=== PATIENT | male | born 1950 ===

== ENCOUNTER 2025-02-26 12:48 | Outpatient (AMB) | payer MEDICARE, SELFPAY ==
--- NOTE | 2025-02-26 12:59 | A.OFFVIS_ITS ---
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 His reported that he was different, sleeping all the time, not active, not socializing, and forgetful. He said that he was not depressed or stressed, not drinking alcohol, and did not have headaches. No h/o seizure like episodes or stroke like symptoms.) He is presenting for a follow-up visit for memory issues. He has had no significant changes in his condition since his last visit. His memory is reported to be stable. The patient takes donepezil for his cognitive condition. He also takes gabapentin twice daily for peripheral neuropathy, which was prescribed by his primary care provider. He has a history of herpes zoster. The patient has a history of foot ulcers, which limited his mobility, but they are now improving. He is dependent on his for care and would have difficulty if he were living alone. He also has hearing impairment and reports muscle aches. Review of Systems Narrative - Neurological: Reports stable memory and myalgia. - Psychiatric: Reports stable mood and anxiety. - Constitutional: Reports stable sleep. - HEENT: Reports hearing impairment. - Integumentary: Reports improving ulcers on the feet. Physical Exam Neuro Other: Mental Status: Alert and oriented to person, place, and time. Normal attention. Normal spontaneous speech, fluency, and comprehension. Cranial Nerves: CN II: Visual villatoro full to confrontation, visual acuity intact. CN III, IV, : Pupils equal, round, reactive to light and accommodation. Extraocular movements are normal. CN V: Facial sensation is normal. CN VII: Facial movements symmetrical. CN VIII: Hearing intact to bedside conversation is normal. CN IX, X: Palate elevates symmetrically. CN XI: Shoulder shrug and head turn symmetrical. CN XII: Tongue midline without atrophy or fasciculations. Slow and cautious gait with a walker. Extrapyramidal: Full facial expressions and blinking. No rigidity. Movements are appropriate wit h no tremor or abnormality. Speech: Normal; no dysarthria or tremor. Assessment & Plan Assessment & Plan (1) Alzheimer dementia: Comment: MRI brain WO at [place] in Mar 2024: Mod central and temporal atrophy, mod MVD. Code(s): G30.9 - Alzheimer's disease, unspecified; F02.80 - Dementia in other diseases classified elsewhere, unspecified severity, without behavioral disturbance, psychotic disturbance, mood disturbance, and anxiety Category: Medical Qualifiers: Alzheimer's disease onset: late onset Dementia severity: moderate Dementia behavioral or psychological symptom: without behavioral, psychotic, or mood disturbance or anxiety Qualified Code(s): G30.1 - Alzheimer's disease with late onset; F02.B0 - Dementia in other diseases classified elsewhere, moderate, without behavioral disturbance, psychotic disturbance, mood disturbance, and anxiety (2) Multifactorial dementia: Code(s): F03.90 - Unspecified dementia, unspecified severity, without behavioral disturbance, psychotic disturbance, mood disturbance, and anxiety Category: Medical (3) Diabetic neuropathy: Code(s): E11.40 - Type 2 diabetes mellitus with diabetic neuropathy, unspecified Category: Medical Qualifiers: Diabetes mellitus type: type 2 Diabetes mellitus complication detail: with other neurological complication Qualified Code(s): E11.49 - Type 2 diabetes mellitus with other diabetic neurological complication Plan Impression: a: Mild dementia probably of Alzheimer type b: Diabetic neuropathy Rec: a: Donepezil 10mg daily b: Walker c: Gabapentin 300mg bid, prescribed by PCP's office d: Stay active I discussed with the patient and his that the progression of his cognitive condition is individual but generally slow. I explained that he is significantly affected to the point where he would be unable to live alone safely. I emphasized the importance of staying mobile to prevent muscle deconditioning, especially since his foot ulcers are resolving. I recommended he walk around inside the house every hour. Regarding his query about an OTC supplement for muscle aches, I advised that he could try it for a week but to discontinue it if there is no improvement. We will continue his current medications, including a refill for donepezil, and plan for a follow-up appointment in 6 months. Medications: New donepezil 10 mg PO BEDTIME 90 tabs 1RF Coding Level of Care Code Est Pt Level 4 (50544) Diagnoses Moderate late onset Alzheimer's dementia without behavioral disturbance, psychotic disturbance, mood disturbance, or anxiety G30.1; F02.B0 Alzheimer's disease onset: late onset Dementia severity: moderate Dementia behavioral or psychological symptom: without behavioral, psychotic, or mood disturbance or anxiety Multifactorial dementia F03.90 Other diabetic neurological complication associated with type 2 diabetes mellitus E11.49 Diabetes mellitus type: type 2 Diabetes mellitus complication detail: with other neurological complication
== END 2025-02-26 13:15 | disposition home or self-care (01) ==
LOC: HO.HSM 12:49
PROVIDERS: PCP Internal Medicine; Referring Provider Internal Medicine; Visit Provider Psychiatry & Neurology Neurology
DX: G30.1 Alzheimer's disease with late onset (principal); F02.B0 Dementia in other diseases classified elsewhere, moderate, without behavioral disturbance, psychotic disturbance, mood disturbance, and anxiety; F03.90 Unspecified dementia, unspecified severity, without behavioral disturbance, psychotic disturbance, mood disturbance, and anxiety; E11.49 Type 2 diabetes mellitus with other diabetic neurological complication
CPT/HCPCS: 99214

== ENCOUNTER → 2025-02-26 12:48 | Outpatient (BNVA) | payer MEDICARE, SELFPAY | PROVIDERS: PCP Internal Medicine; Referring Provider Internal Medicine; Visit Provider Psychiatry & Neurology Neurology | DX: G30.1 Alzheimer's disease with late onset (principal); F02.B0 Dementia in other diseases classified elsewhere, moderate, without behavioral disturbance, psychotic disturbance, mood disturbance, and anxiety; E11.49 Type 2 diabetes mellitus with other diabetic neurological complication | CPT/HCPCS: 99212 ==